=== PATIENT | female | born 1990 | race Caucasian/White ===

== ENCOUNTER 2019-12-05 19:17 | Inpatient (IN) ==
[2019-12-05] MEDS ORDERED: BUTORPHANOL 2 MG/ML VIAL IV PRN (20:02)
[2019-12-05] MEDS ORDERED: MEPERIDINE 50 MG/1 ML VIAL IM PRN (20:02)
[2019-12-05] MEDS ORDERED: ONDANSETRON 4 MG/2 ML VIAL IV PRN ×2 (20:02→21:55)
[2019-12-05] MEDS ORDERED: PROMETHAZINE 25 MG/1 ML VIAL IM ONE (20:04)
[2019-12-05] MEDS ORDERED: CITRIC ACID/SODIUM CITRATE 30 ML UDCUP PO ONE (20:04)
[2019-12-05] MEDS ORDERED: ONDANSETRON 4 MG/2 ML VIAL IV ONE (20:04)
[2019-12-05] MEDS ORDERED: LACTATED RINGERS 1,000 ML IV ONE (20:04)
[2019-12-05] MEDS ORDERED: hydrOXYzine HCL 25 MG/1 ML VIAL IM PRN (20:04)
[2019-12-05] MEDS ORDERED: diphenhydrAMINE 50 MG/1 ML VIAL IV PRN ×2 (20:04)
[2019-12-05] MEDS ORDERED: ePHEDrine 50 MG/ML VIAL IV PRN (20:04)
[2019-12-05] MEDS ORDERED: NALOXONE 0.4 MG/ML VIAL IV PRN (20:04)
[2019-12-05] MEDS ORDERED: FAMOTIDINE 20 MG/2 ML VIAL IV ONE (20:04)
[2019-12-05 20:20] LABS: Basophils % 0.2 % (0.0-0.8); Eosinophils # 0.1 10*3/uL (0.0-0.87); Eosinophils % 0.9 % (0.00-10.9); Hematocrit 28.8 VOL% (35.7-47.0); Hemoglobin 9.6 GM/DL (12.0-16.0); Immature Granulocytes % 0.8 %; Immature Granulocytes Absolute 0.08 #; Lymphocytes # 1.9 10*3/uL (1.4-4.0); Lymphocytes % 19.2 % (21.3-54.2); Mean Corpuscular HGB Conc 33.3 GM/DL (32-36); Mean Corpuscular Volume 84.5 FL (87-102); Mean Platelet Volume 11.4 FL (9.6-12.0); Neutrophils % 73.9 % (38.7-73.9); Platelet Count 141 T/CUMM (130-400); Red Blood Count 3.41 MC/CUMM (3.8-5.5); Red Cell Distribution Width 13.7 % (9.3-17.3); White Blood Count 10.1 T/CUMM (4-12)
[2019-12-05] MEDS ORDERED: METHYLERGONOVINE 0.2 MG/1 ML AMP ONE (20:22)
[2019-12-05] MEDS ORDERED: miSOPROStoL 200 MCG TABLET ONE (20:22)
[2019-12-05] MEDS ORDERED: OXYTOCIN/LR 20 UNIT/1,000 ML BAG IV ONE ×2 (20:22→21:55)
[2019-12-05] MEDS ORDERED: TRANEXAMIC ACID 1,000 MG/10 ML VIAL ONE (20:22)
[2019-12-05] MEDS ORDERED: CARBOPROST TROMETHAMINE 250 MCG/ML AMP IM ONE (20:23)
[2019-12-05] MEDS ORDERED: LACTATED RINGERS 1,000 ML IV SCH (20:30)
[2019-12-05] MEDS ORDERED: OXYTOCIN/LR 20 UNIT/1,000 ML BAG IV SCH (20:30)
[2019-12-05] MEDS ORDERED: fentaNYL 2 MCG/ROPIV 0.2% EPID 100 ML EPIDURAL SCH (20:30)
[2019-12-05 20:41] LABS: Alanine Aminotransferase 12 U/L (13-56); Albumin 2.5 G/DL (3.4-5.0); Alkaline Phosphatase 224 U/L (45-117); Aspartate Amino Transferase 12 U/L (0-37); Bilirubin,Total < 0.39 MG/DL (0.2-1.0); Blood Urea Nitrogen 10 MG/DL (7-18); Calcium 8.7 MG/DL (8.5-10.1); Estimated Glom Filtration Rate 109 ML/MIN; Glucose 89 MG/DL (74-106); Osmolality,Calculated 274.5 MOS/KG (273-304); Total Protein 6.2 G/DL (6.4-8.3)
[2019-12-05 21:07] LABS: Hepatitis B Surface Ag Quant 0.21 Index; Hepatitis B Surface Ag Result Negative (Negative)
[2019-12-05 21:23] LABS: Apearance,Urine CLEAR (Clear); Bilirubin,Urine Negative (Negative); Blood, Urine Negative (Negative); Glucose,Urine (UA) Negative (Negative); Ketones,Urine 20 mg/dL (Negative); Nitrite,Urine Negative (Negative); Protein,Urine Negative; RBC,Urine <1 /HPF (0-4); Squamous Epithelial Cell,Urine Occasional /HPF (0-10); Urine Color Yellow (Yellow); Urine Specific Gravity 1.014 (1.001-1.035)
[2019-12-05 21:31] LABS: HIV Antigen/Antibody Result Nonreactive (Nonreactive)
[2019-12-05 21:54] LABS: Barbiturates Screen,Urine Negative (Negative); Benzodiazepines Screen,Urine Negative (Negative); Cannabinoid Screen,Urine Negative (Negative); Opiate Screen,Urine Negative (Negative); Phencyclidine Screen,Urine Negative (Negative)
[2019-12-05] MEDS ORDERED: WITCH HAZEL PADS 100/JAR TOP PRN (21:55)
[2019-12-05] MEDS ORDERED: LANOLIN 50% CREAM 0.3 OZ TUBE TOP PRN (21:55)
[2019-12-05] MEDS ORDERED: BENZOCAINE 20%/MENTHOL 0.5% SPRAY 56 GM CAN TOP PRN (21:55)
[2019-12-05] MEDS ORDERED: MEASLES/MUMPS/RUBELLA VACCINE 0.5 ML VIAL SUBCUT ONE (21:55)
[2019-12-05] MEDS ORDERED: BISACODYL 10 MG SUPP RECTAL PRN (21:55)
[2019-12-05] MEDS ORDERED: RHO(D) IMMUNE GLOBULIN 300 MCG SYRINGE IM ONE (21:55)
[2019-12-05] MEDS ORDERED: ACETAMINOPHEN 325 MG TABLET PO PRN (21:55)
[2019-12-05] MEDS ORDERED: oxyCODONE/ACETAMINOPHEN 5-325 MG TABLET PO PRN (21:55)
[2019-12-05] MEDS ORDERED: DIPH/TET/ACEL PERT BOOSTER VACCINE 0.5 ML VIAL IM ONE (21:55)
[2019-12-05] MEDS ORDERED: HYDROCORTISONE 2.5% RECTAL CREAM 30 GM TUBE TOP PRN (21:55)
[2019-12-05] MEDS ORDERED: AMPICILLIN INJ 2,000 MG in SODIUM CHLORIDE 0.9% 100 ML IV SCH (22:00)
[2019-12-05 22:10] LABS: Cord Arterial Blood HCO3 20.6 MMOL/L
[2019-12-05 22:11] LABS: Cord Venous Blood HCO3 22.2 MMOL/L; Cord Venous Blood PCO2 31.7 MMHG; Cord Venous Blood PO2 29.7
[2019-12-06] MEDS: IBUPROFEN 800 MG TABLET PO PRN ×3 (01:36→16:34)
[2019-12-06 05:28] LABS: Basophils % 0.2 % (0.0-0.8); Eosinophils # 0.1 10*3/uL (0.0-0.87); Eosinophils % 0.7 % (0.00-10.9); Hematocrit 24.5 VOL% (35.7-47.0); Hemoglobin 8.2 GM/DL (12.0-16.0); Immature Granulocytes % 0.7 %; Immature Granulocytes Absolute 0.09 #; Lymphocytes % 15.5 % (21.3-54.2); Mean Corpuscular HGB Conc 33.5 GM/DL (32-36); Mean Corpuscular Volume 83.6 FL (87-102); Mean Platelet Volume 12.1 FL (9.6-12.0); Neutrophils % 77.9 % (38.7-73.9); Platelet Count 135 T/CUMM (130-400); Red Blood Count 2.93 MC/CUMM (3.8-5.5); Red Cell Distribution Width 13.4 % (9.3-17.3)
[2019-12-06] MEDS: DOCUSATE SODIUM 100 MG CAPSULE PO SCH ×2 (08:42→21:23)
[2019-12-06] MEDS: FERROUS SULFATE 325 MG TABLET PO SCH ×2 (08:42→21:23)
[2019-12-06] MEDS: POTASSIUM CHLORIDE 20 MEQ TABLET PO SCH ×2 (08:42→21:23)
[2019-12-06] MEDS ORDERED: SUBOXONE 8MG-2MG FILM SL SCH (09:00)
[2019-12-06] MEDS: oxyCODONE/ACETAMINOPHEN 5-325 MG TABLET PO PRN ×2 (12:39→18:08)
[2019-12-07] MEDS: IBUPROFEN 800 MG TABLET PO PRN (01:46)
[2019-12-07] MEDS ORDERED: KETOROLAC 10 MG TABLET PO PRN (02:58)
[2019-12-07] MEDS ORDERED: ACETAMINOPHEN 500 MG TABLET PO PRN (02:58)
[2019-12-07] MEDS ORDERED: MAGNESIUM HYDROXIDE SUSP 30 ML UDCUP PO PRN (08:47)
[2019-12-07 09:04] VITALS: BP 100/79
[2019-12-07] MEDS: DOCUSATE SODIUM 100 MG CAPSULE PO SCH (09:04)
[2019-12-07] MEDS: FERROUS SULFATE 325 MG TABLET PO SCH (09:04)
== END 2019-12-07 13:50 | disposition home or self-care (01) | DRG 560 ==
LOC: N.LDOUT 19:17 → N.LD 19:22 → N.LDOUT 19:23 → N.LD 19:28 → N.OB 12-06 01:21
PROVIDERS: ADMIT Obstetrics & Gynecology; ATTEND Obstetrics & Gynecology